=== PATIENT | male | born 2000 | race Hispanic/Latino ===

== ENCOUNTER 2022-02-22 04:25 | Emergency (ER) | payer OTHER ==
[~2022-02-22] VITALS: Ht 165.1 cm; Wt 65.9 kg
[2022-02-22] MEDS ORDERED: OCUF0.25 OP (06:33)
[2022-02-22] MEDS ORDERED: KETOROLAC TROMETHAMINE 10 MG TAB PO ONE (06:35)
[2022-02-22 06:45] VITALS: BP 121/71
[2022-02-23] MEDS ORDERED: UNRESOLVED CLARIFICATION ENTRY XX SCH (00:01)
== END 2022-02-22 07:01 | disposition home or self-care (01) ==
LOC: M ED 04:25
DX: H10.31 Unspecified acute conjunctivitis, right eye (principal)

== ENCOUNTER → 2023-07-06 | Outpatient (REF) | payer OTHER ==
[~2023-07-06] MED LIST: OCUF0.25 OP
== END ==
LOC: M LABWUC 16:15
PROVIDERS: ATTEND Physician Assistant
DX: J06.9 Acute upper respiratory infection, unspecified (principal)